=== PATIENT | male | born 1965 | race Caucasian/White ===

== ENCOUNTER 2024-07-23 16:00 | Outpatient (RCR) | payer OTHER, SELFPAY ==
--- NOTE | 2024-05-14 09:13 | HMH.PTOPEV ---
PT Outpatient Evaluation Rehab PT Outpatient Evaluation Start: 05/14/24 08:49 Freq: Status: Active Protocol: Document 05/14/24 08:49 GIRMA (Rec: 05/14/24 09:13 GIRMA [id number]) E-signed By Dhruv Solis, PT Outpatient Therapy Subjective History Subjective History Patient is a 58 year old male presenting to outpatient PT with reports of L post- surgical knee pain S/P L quad tendon repair and patellar ORIF. Sx date 03/27/24. Initial injury occurred after a fall while walking down stairs 03/26/24 while on vacation. No recent imaging on file to report. Patient currently in T-scope knee brace in full extension. Other comorbidities include hx of HTN, RA, pre-diabetes and L 4/5 discectomy. New diagnosis of cancer in past 12 No months? Chief Complaint Pain,Stiff,Weakness Symptom Type Ache Symptoms Relieved By Rest/Positioning,Ice,OTC Meds, Prescription Meds Symptoms Aggravated By Standing,Physical Activity, Walking Prior Functional Limitations None Current Functional Limitations Housework,Sleeping,Standing, Sitting,Squatting,Recreation Activity,Walking,Stairs, Balance Symptom Description Constant but Variable Level of pain today (0-10) 4 Pain scale - at its best (0-10) 3 Pain scale - at its worst (0-10) 8 Hip/Knee Eval Gait Observation General Gait Pattern Observation Antalgic Gait,Decrease Weight Bear (L) Assistive Device Assistive Devices Rolling / Wheeled Walker Palpation Tenderness left Knee Palpation Finding Tenderness Knee Palpation Overall Comment M/L joint line 3/4 MMT Hip Strength Reason Not Measured Orthopedic Precautions Knee Strength Reason Not Measured Orthopedic Precautions ROM Hip ROM Reason Not Measured Within Functional Limits Knee Extension Active Range of Motion ( 0 degrees) Knee Flexion Active Range of Motion ( 34 degrees) Special Tests Knee Valgus Stress Test Negative Left Knee Varus Stress Test Negative Left Lower Extremity Functional Index Activities Today, do you or would you have any difficulty at all with: a.Any of your usual work, housework or Extreme difficulty or unable school activities to perform activity b. Your usual hobbies, recreational or Quite a bit of difficulty sporting activities c. Getting into or out of the bath Moderate difficulty d. Walking between rooms Moderate difficulty e. Putting on your shoes or socks Extreme difficulty or unable to perform activity f. Squatting Extreme difficulty or unable to perform activity g. Lifting an object, like a bag of Moderate difficulty groceries from the floor h. Performing light activities around Moderate difficulty your home i. Performing heavy activities around Extreme difficulty or unable your home to perform activity j. Getting into or out of a car Quite a bit of difficulty k. Walking 2 blocks Extreme difficulty or unable to perform activity l. Walking a mile Extreme difficulty or unable to perform activity m. Going up or down 10 stairs (about 1 Extreme difficulty or unable flight of stairs) to perform activity n. Standing for 1 hour Extreme difficulty or unable to perform activity o. Sitting for 1 hour Quite a bit of difficulty p. Running on even ground Extreme difficulty or unable to perform activity q. Running on uneven ground Extreme difficulty or unable to perform activity r. Making sharp turns while running fast Extreme difficulty or unable to perform activity s. Hopping Extreme difficulty or unable to perform activity t. Rolling over in bed Quite a bit of difficulty LEFI Score Lower Extremity Functional Index Score 12 Outpatient Therapy Assessment Impairments Problems/Impairmments Palpation Tenderness,Impaired Range of Motion,Impaired Strength,Impaired Transfers, Impaired Gait Pattern,Impaired Walking,Impaired Standing, Impaired Household Care, Impaired Stair Climbing, Impaired Incline Stepping, Impaired Stepping on Uneven Surface,Impaired Squatting, Impaired Bending,Impaired Recreational Activities, Increased Edema,Subjective C/O Pain Prognosis Rehab Potential Good Clinical Impression Consistent with Diagnosis Yes Short Term Goals Number of Weeks 2 Decrease Subjective C/O Pain Yes: 5/10 at worst Patient to be Ind w/ HEP Yes Penitentiary Goals Number of Weeks 4-6 Decreased Palpation Tenderness Yes: 1/4 Increase Range of Motion Yes: 0-120 Increase Strength Yes: 5/5 Increase Ability to Walk Yes: 30 min without difficulty Increase Ability to Stand Yes: Improve Ability For Household Care Yes Improve LEFI Score Yes: >50 Decrease Subjective C/O Pain Yes: 2/10 at worst Outpatient Therapy Plan of Care Treatment Plan May Include Therapeutic Exercise Including Home Yes Exercise Program Manual Therapy Techniques Yes Neuromuscular Re-education Yes Therapeutic Activities to Return to Yes Previous Functional/Work Level Gait Training Yes ADL/Self Care Education Yes Dry Needling Yes Thermal Modalities Yes Electrical Stimulation Yes Ultrasound/Phonophoresis Yes Iontophoresis Yes Orthotics/Bracing/Splinting Yes Vasopneumatic Compression Pump Yes Massage Yes Manual Lymphatic Drainage Yes Eval/Re-Eval Yes Aquatic Therapy Yes Frequency Times per week 2 Duration Number of Weeks 4-6 Addendums This patient is a candidate for social No or vocational rehab? Patient/Guardian verbally acknowledges Yes understanding of treatment program and consents to further treatment? Patient/Guardian verbally acknowledges Yes understanding of diagnosis, prognosis and goals for treatment? Eval Complexity PT Charges 02015 - Moderate Complexity Shoulder/Elbow Eval Shoulder Objective Measurements Elbow Objective Measurements PHYSICIAN CERTIFICATION: I certify the specified therapy services for Julio Cesar Ordonez are required, authorized, and reviewed every 30 days.
--- NOTE | 2024-06-11 17:30 | [facility].RHREAS ---
Rehab Reassessment Rehab OP Re-assessment Start: 05/14/24 08:49 Freq: Status: Active Protocol: Document 06/11/24 17:23 PHORNE (Rec: 06/11/24 17:30 PHORNE [id number]) E-signed By Asif Rojas, PT Lower Extremity Functional Index Activities Today, do you or would you have any difficulty at all with: a.Any of your usual work, housework or Moderate difficulty school activities b. Your usual hobbies, recreational or Moderate difficulty sporting activities c. Getting into or out of the bath Moderate difficulty d. Walking between rooms A little bit of difficulty e. Putting on your shoes or socks A little bit of difficulty f. Squatting A little bit of difficulty g. Lifting an object, like a bag of A little bit of difficulty groceries from the floor h. Performing light activities around A little bit of difficulty your home i. Performing heavy activities around A little bit of difficulty your home j. Getting into or out of a car A little bit of difficulty k. Walking 2 blocks A little bit of difficulty l. Walking a mile Moderate difficulty m. Going up or down 10 stairs (about 1 Quite a bit of difficulty flight of stairs) n. Standing for 1 hour A little bit of difficulty o. Sitting for 1 hour A little bit of difficulty p. Running on even ground Extreme difficulty or unable to perform activity q. Running on uneven ground Extreme difficulty or unable to perform activity r. Making sharp turns while running fast Extreme difficulty or unable to perform activity s. Hopping Quite a bit of difficulty t. Rolling over in bed A little bit of difficulty LEFI Score Lower Extremity Functional Index Score 43 Rehab Re-assessment Subjective Subjective Pt reports, I feel really good overall. I went to a family reunion on Monday and I had to ride in the car a long way and walk around a lot. It was sore after that, but not terrible and it already feels better by today. Objective Objective Notes Pain: L knee 3/10 at worst MMT L LE: HIP FLEX 4+/5, HIP ABD 4+/5, HIP ADD 4+/5, KNEE FLEX 5/5, KNEE EXT 4+/5 AROM L KNEE: 0-100 DEG. TTP: L KNEE 0/4 THROUGHOUT LEFS: 43 this date vs 12 on IE . Gait: mildly antalgic gait pattern on the L LE during stance phase without knee brace or AD. Assessment Progress Assessment Progressing as Expected Assessment Notes Pt has shown significant improvement in overall strength and pain levels of the L LE. He continues to need increased L knee AROM to facilitate all functional mobility and return to proper gait pattern. Skilled therapy remains necessary to return pt to PLOF. Patient goals met ST/2 LT/8 Plan Plan Continue per initial POC. Frequency of Therapy 2 x/wk Duration of therapy 4 wks Time and Billing Re-Eval Time 11 Re-Eval Billing Units 1 PHYSICIAN CERTIFICATION: I certify the specified therapy services for Julio Cesar Ordonez are required, authorized, and reviewed every 30 days.
== END 2024-07-23 16:05 | disposition home or self-care (01) ==
LOC: PT 16:00
PROVIDERS: Visit Provider Physician Assistant Surgical
DX: M25.562 Pain in left knee (principal); S76.122A Laceration of left quadriceps muscle, fascia and tendon, initial encounter; Z98.890 Other specified postprocedural states
CPT/HCPCS: 97110; 97112; 97140; 97163; 97164; 97530